=== PATIENT | male | born 1950 | race Caucasian/White ===

== ENCOUNTER 2017-09-07 17:05 | Emergency (ER) | payer MEDICARE, OTHER ==
[2017-09-07 17:17] VITALS: BP 166/97; PULSE 70; RESP 18; TEMP 98.3; O2SAT 97
--- NOTE | 2017-09-07 17:45 | C.PDOC ---
History Of Present Illness 66 year old male presents to the emergency department status-post slipping, falling, and suffering a contusion to his posterior right scalp. Patient states he accidentally missed a step while going down the stairs and that his head struck the wall. Patient denies loss of consciousness, nausea, and vomiting. Patient complains of pain to the area but denies other injury or symptoms. SP SLIP AND FALL CO CONTUSION BACK R SCALP. PS ACCID MISSED STEPS GOING DOWN, HEAD STRUCK WALL. NO LOC, NV. CO PAIN TO AREA. DENIES OTHER INJURY, SX EXAM NAD NONTOXIC APPEARS COMFORTABLE HEENT +CONTUSION R PARIETAL W MIN LOCAL SWELL, TEND. NO DEFORM. NECK SUPPLE NONTEND SKIN +BRUISING R PARIETAL SCALP. INTACT. NEURO NO FOCAL DEF REMAINDE RNEG Time Seen by Provider: 09/07/17 17:34 Chief Complaint (Nursing): Trauma History Per: Patient History/Exam Limitations: no limitations Injury Occurred (Timing): Hours Ago: Onset/Duration Of Symptoms: Hrs Patient States: Struck With Object (wall) Loss Of Consciousness: No Past Medical History Reviewed: Historical Data, Nursing Documentation, Vital Signs Vital Signs: Last Vital Signs Temp 98.3 F 09/07/17 17:15 Pulse 70 09/07/17 17:15 Resp 18 09/07/17 17:15 BP 166/97 H 09/07/17 17:15 Pulse Ox 97 09/07/17 17:44 - Medical History PMH: Diabetes (borderline no meds), HTN, Hypercholesterolemia Surgical History: No Surg Hx Family History: States: No Known Family Hx - Social History Hx Tobacco Use: No Hx Alcohol Use: No Hx Substance Use: No - Immunization History Hx Tetanus Toxoid Vaccination: No Hx Influenza Vaccination: Yes Hx Pneumococcal Vaccination: No Review Of Systems Except As Marked, All Systems Reviewed And Found Negative. Cardiovascular: Negative for: Other (loss of consciousness) Gastrointestinal: Negative for: Nausea, Vomiting Musculoskeletal: Positive for: Other (head pain) Physical Exam - Physical Exam Appears: Non-toxic, No Acute Distress, Other (appears comfortable) Skin: Warm, Dry, Ecchymosis (positive at the right parietal scalp), Other ( intact) Head: Tenderness, Swelling (minimal, local), Other (contusion to the right parietal area. no deformities) Eye(s): bilateral: Normal Inspection Neck: Normal, No Midline Cervical Tenderness, No Paracervical Tenderness, Supple Chest: Symmetrical Cardiovascular: Rhythm Regular Respiratory: Normal Breath Sounds Extremity: Normal ROM Neurological/Psych: Oriented x3, Normal Speech, Normal Cognition, No Other ( focal deficits) ED Course And Treatment O2 Sat by Pulse Oximetry: 97 (RA) Pulse Ox Interpretation: Normal Progress Note: Plan: Tylenol 975mg PO Disposition Counseled Patient/Family Regarding: Diagnosis, Need For Followup - Disposition Referrals: YOUR,PMD [Other] Disposition: HOME/ ROUTINE Disposition Time: 17:44 Condition: IMPROVED Instructions: Minor Head Injury (DC) Forms: [email or web address] (Montenegrin) - Clinical Impression Clinical Impression: Minor head injury without loss of consciousness - Scribe Statement The provider has reviewed the documentation as recorded by the Scribe (Redd Paulino) Provider Attestation: All medical record entries made by the Scribe were at my direction and personally dictated by me. I have reviewed the chart and agree that the record accurately reflects my personal performance of the history, physical exam, medical decision making, and the department course for this patient. I have also personally directed, reviewed, and agree with the discharge instructions and disposition.
== END 2017-09-07 17:50 | disposition home or self-care (01) ==
LOC: C.ER 17:05
DX: S09.90XA Unspecified injury of head, initial encounter (principal); W01.0XXA Fall on same level from slipping, tripping and stumbling without subsequent striking against object, initial encounter; E78.00 Pure hypercholesterolemia, unspecified

== ENCOUNTER 2018-04-13 09:08 | Outpatient (CLI) | payer MEDICARE, OTHER | END 2018-04-13 09:09 | disposition home or self-care (01) | LOC: C.CARD 09:08 ==